=== PATIENT | male | born 1970 | race Two or more races ===

== ENCOUNTER 2020-10-05 13:15 | Emergency (ER) | payer OTHER, MEDICAID ==
[~2020-10-05] VITALS: Ht 175.3 cm; Wt 86.0 kg
[2020-10-05] MEDS ORDERED: KETOROLAC 60MG/2ML VIAL IM STA (14:09)
[2020-10-05 14:40] VITALS: BP 154/115
[2020-10-05] MEDS ORDERED: IBUP-2030 PO (15:40)
== END 2020-10-05 16:11 | disposition home or self-care (01) ==
LOC: ER 13:15
DX: S40.012A Contusion of left shoulder, initial encounter (principal); Z98.890 Other specified postprocedural states; V00.131A Fall from skateboard, initial encounter; Y93.89 Activity, other specified; Y92.89 Other specified places as the place of occurrence of the external cause; Y99.8 Other external cause status
CPT/HCPCS: 73030; 96372; 99283; J1885; Z7610; A4565